=== PATIENT | male | born 1990 | race Caucasian/White ===

== ENCOUNTER 2016-07-28 20:43 | Emergency (ER) | payer OTHER ==
[~2016-07-28 20:43] MED LIST: AMOXICILLIN500 MG PO; BLM PO; GABAPENTIN400 MG PO; LIDOCAINE VISC100 M1 PO; METHADONE HCL5 MG PO; PEPCID20 M1 PO; PEPTO BISM262 MG/15; SUBOXONE 8 MG-21 FIL SL; ZOFRAN ODT4 MG SL
[2016-07-28 20:49] VITALS: BP 135/100
--- NOTE | 2016-07-28 21:51 | ED GI/GU/ABDOMINAL COMPLAINT ---
History of Present Illness General Chief Complaint: Male Genitourinary Problems Stated Complaint: BUMP ON PENIS, PAINFUL URINATION Source: patient Exam Limitations: no limitations Vital Signs & Intake/Output Vital Signs & Intake/Output Vital Signs Date Time Temp Pulse Resp B/P Pulse O2 O2 Flow FiO2 Ox Delivery Rate 07/28 2048 98.6 108 22 135/100 98 Allergies Coded Allergies: acetaminophen (From Tylenol) (Mild, STOMACH ACHE, VOMITING 07/28/16) Reconcile Medications Esomeprazole (Nexium) 40 MG CAPSULE. 1 CAP PO DAILY GI (Reported) Triage Note: PER PT BUMP ON PPENIS X 1 HR PER PT IT IS HUGE, AND BENDING IT SIDEWAYS + PAIN NO DISCHARGE Triage Nurses Notes Reviewed? yes Onset: Abrupt Duration: constant Timing: recent history Quality/Severity: fullness Severity Numbers: 5 Radiation: no radiation Activities at Onset: physical activity Prior Abdominal Problems: none HPI: Patient is a 25-year-old male who presents to emergency room with concerns of penile swelling. Patient is a circumcised male who states that this morning patient had sexual intercourse with a female in which he had no complaints at the time HOWEVER later on this evening after masturbating IN WHICH HE denies any significant trauma to his penis during that this event. Patient states that when he became flaccid he noted a gradual onset of right-sided soft tissue swelling and pain. Patient has been able to urinate. Denies any redness or skin bump or skin vesicles or discharge. Denies any penile discharge. Patient has been able to urinate since symptoms began with no pain (OLIVIA PEACOCK) Past History Travel History Traveled to [place] past 21 day No Medical History Any Pertinent Medical History? 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 No (OLIVIA PEACOCK) Review of Systems Review of Systems Constitutional: Reports: no symptoms. EENTM: Reports: no symptoms. Respiratory: Reports: no symptoms. Cardiovascular: Reports: no symptoms. GI: Reports: no symptoms. Genitourinary: Reports: see HPI, pain. Musculoskeletal: Reports: no symptoms. Skin: Reports: no symptoms. Neurological/Psychological: Reports: no symptoms. Hematologic/Endocrine: Reports: no symptoms. Immunologic/Allergic: Reports: no symptoms. All Other Systems: Reviewed and Negative (OLIVIA PEACOCK) Physical Exam Physical Exam General Appearance: no apparent distress, alert, comfortable Gastrointestinal: normal bowel sounds, soft, non-tender, no organomegaly Male Genitals: iNSPECTION NOTED THAT PATIENT HAD NO CONCERNS OF ERECTION OR PRIAPISM pATIENT HAS MODERATE MIDSHAFT SOFT TISSUE SWELLING AND TENDERNESS pATIENT CIRCUMCISED NO CONCERNS OF ANGULATION OR PEYRONIE'S NO CONCERNS OF PARAPHIMOSIS OR PHIMOSIS Comments: Well-developed well-nourished person in no acute distress HEENT: Normal EENT exam, Neck: Supple, no lymphadenopathy, normal range of motion without pain or tenderness Back: Nontender, Cardiovascular: Regular rate and rhythms no murmurs rubs or gallops, normal JVP Respiratory: Chest nontender. No respiratory distress.breath sounds clear to auscultation bilaterally Abdomen: Soft, nontender nondistended, no appreciable organomegaly. Normal bowel sounds. No ascites -cremaster reflex intact Extremity: No edema, no calf tenderness to palpation, normal and equal pulses. Neuro: Alert oriented x3, motor sensory normal Skin: No appreciable rash on exposed skin, skin is warm and dry. Psych: Mood and affect is normal, memory and judgment is normal. Core Measures ACS in differential dx? No Severe Sepsis Present: No Septic Shock Present: No (OLIVIA PEACOCK) Progress Differential Diagnosis: appendicitis, biliary colic, bowel obstruction, colon cancer, cholecystitis, diverticulitis, epididymitis, esophageal varices, gastritis, hepatitis, hernia, hemorrhoids, ischemic bowel, inflamm bowel dis, Alice-Sampson tear, orchitis, pancreatitis, prostatitis, peptic ulcer, PUD/GERD, perforated viscous, pyelonephritis, SBO, STD, testicular torsion, ureterolithiasis, urinary retention, urethritis, UTI/pyelo, PRIAPISM, PARAPHIMOSIS, PHIMOSIS, PENILE FRACTURE, Plan of Care: Orders Procedure Date/time Status URINALYSIS 07/28 2049 Complete Laboratory Tests 07/28/162114: Urinalysis HEAVY H, Urine Color YEL, Urine Clarity CLDY H, Urine pH 7.5, Ur Specific [place] 1.015, Urine Protein NEG, Urine Ketones NEG, Urine Nitrite NEG, Urine Bilirubin NEG, Urine Urobilinogen 0.2, Ur Leukocyte Esterase NEG, Ur Microscopic SEDIMENT EXAMINED, Urine WBC RARE, Ur Epithelial Cells RARE, Urine Hemoglobin NEG, Urine Glucose NEG Patient this time on examination has no concerns of paraphimosis or phimosis patient also denies any concerns of mechanism injury or concerns of fracture. There is also no concern of Peyronie's I discussed patient and symptoms with urologist Dr. BAILON were advised patient to begin icing and NSAIDs and follow up with urology if symptoms continue. I strongly advised patient to discontinue sexual activities until his symptoms have resolved and his symptoms still continue tomorrow to follow-up with urology and he will comply (OLIVIA PEACOCK) Initial ED EKG: none (OLIVIA PEACOCK) Departure Departure Disposition: HOME OR SELF CARE Condition: Stable Clinical Impression Primary Impression: Penile inflammation Referrals: VÍCTOR PIPER,NAV Chang (PCP/Family) NESTOR CASTELLON MD Referred to [facility] as new patient No Additional Instructions: As discussed begin to apply ice to the region 20 minutes every 2 hours for pain and inflammation. Begin [id number] ibuprofen for pain and inflammation. If symptoms worsen return to the emergency room. If no better by tomorrow please follow up and call Dr. Castellon's office urology for further evaluation treatment to make appointment to be seen DO not participate in sexual activities until YOUR symptoms have resolved Departure Forms: Customer Survey General Discharge Information (OLIVIA PEACOCK) PA/CALENDER SUPERVISOR Co-Sign Statement Statement: ED Attending supervision documentation- [] I saw and evaluated the patient. I have also reviewed all the pertinent lab results and diagnostic results. I agree with the findings and the plan of care as documented in the PA's/CALENDER SUPERVISOR's documentation. [x] I have reviewed the ED Record and agree with the PA's/CALENDER SUPERVISOR's documentation. [] Additions or exceptions (if any) to the PAs/CALENDER SUPERVISOR's note and plan are summarized below: [] (YOVANY PIPER,RUTH Rodriguez)
[2016-07-28] MEDS ORDERED: NEXIUM40 M1 PO (22:23)
== END 2016-07-28 22:42 ==
LOC: ERH 20:43
DX: N48.29 Other inflammatory disorders of penis (principal)
CPT/HCPCS: 81001